=== PATIENT | female | born 1970 | race Hispanic/Latino ===

== ENCOUNTER 2023-06-05 18:51 | Emergency (ER) | payer OTHER ==
[~2023-06-05] VITALS: Ht 157.5 cm; Wt 74.8 kg
[2023-06-05 18:52] VITALS: BP 148/82; PULSE 67; RESP 17
== END 2023-06-05 22:27 | disposition left against medical advice (07) ==
LOC: EDH 18:51
DX: K59.00 Constipation, unspecified (principal); Z53.21 Procedure and treatment not carried out due to patient leaving prior to being seen by health care provider
CPT/HCPCS: 99281